=== PATIENT | male | born 1985 | race American Indian/Alaskan Native ===

== ENCOUNTER 2016-08-23 15:39 | Emergency (ER) | payer OTHER ==
[2016-08-23 16:17] LABS: Basophils % (Auto) 0.3 % (0.0-1.8); Eosinophils % (Auto) 0.3 % (0.0-4.3); Hematocrit 43.7 % (35.5-45.6); Hemoglobin 14.5 gm/dl (11.8-15.2); Mean Corpuscular HGB Conc 33 % (32-34); Mean Corpuscular Hemoglobin 28 pg (28-32); Mean Corpuscular Volume 84 fl (84-94); Platelet Count 331 K/mm3 (140-440); Red Cell Distribution Width 13.3 % (13.2-15.2); White Blood Count 10.3 K/mm3 (4.5-11.0)
[2016-08-23 16:26] LABS: Alanine Aminotransferase 28 units/L (7-56); Albumin 4.3 g/dL (3.9-5); Albumin/Globulin Ratio 1.2 %; Alkaline Phosphatase 72 units/L (35-129); Anion Gap 20 mmol/L; BUN/Creatinine Ratio 16.25; Blood Urea Nitrogen 13 mg/dL (9-20); Calcium 9.3 mg/dL (8.4-10.2); Carbon Dioxide 23 mmol/L (22-30); Chloride 100.6 mmol/L (98-107); Glucose 108 mg/dL (75-100); Lipase 20 units/L (13-60); Potassium 4.3 mmol/L (3.6-5.0); Sodium 139 mmol/L (137-145)
[2016-08-23 16:35] LABS: Bilirubin,Urine NEG (Negative); Blood,Urine NEG (Negative); Ketones,Urine NEG (Negative); Leukocyte Esterase,Urine NEG (Negative); Mucus,Urine 2+ /HPF; Nitrite,Urine NEG (Negative); Urobilinogen,Urine < 2.0 mg/dL (<2.0)
[2016-08-23] MEDS ORDERED: NACL ONE (17:21)
--- NOTE | 2016-08-23 18:20 | Cat Scan Report ---
FINAL REPORT PROCEDURE: CT abdomen and pelvis with contrast. TECHNIQUE: Computerized axial tomography of the abdomen and pelvis was performed after the IV injection of iodinated nonionic contrast. HISTORY: Abdominal pain. COMPARISON: No prior studies are available for comparison. FINDINGS: The lung bases are clear. There are no pleural effusions. The heart size is normal. The liver, spleen and pancreas appear normal. The gallbladder is present. The adrenal glands are not enlarged. Both kidneys appear normal in size and configuration. The abdominal aorta has a normal caliber. There is no retroperitoneal adenopathy. The unopacified gastrointestinal tract is unremarkable. A normal appendix is visible. The bladder, seminal vesicles and prostate appear normal. The regional skeleton appears intact. IMPRESSION: Normal studies of the abdomen and pelvis.
--- NOTE | 2016-08-23 19:11 | Emergency Department Report ---
ED Abdominal Pain HPI - General Chief Complaint: Abdominal Pain Stated Complaint: VOMITING/BODY SPASMS Time Seen by Provider: 08/23/16 17:55 Source: patient Mode of arrival: Ambulatory Limitations: No Limitations - History of Present Illness Initial Comments: Patient had a reported that he ate some chicken wings yesterday and haven't felt right since then. He is complaining nausea vomiting since this morning and diarrhea. He is complaining of abdominal pain generalized cramping in that is 3 out of 10. Denies Any fever or chills. He said he vomited twice today and had diarrhea stool twice this morning. His BP 157/107 and he is asymptomatic and does not have a history of high blood pressure. Denies any blood in stool or recent travel outside the country. She reports taking Pepto- Bismol without any relief. Denies any back pain. MD Complaint: abdominal pain, other (Nauses , vomiting and diarrhea) -: This morning Location: diffuse Radiation: none Migration to: no migration Severity: mild Severity scale (0 -10): 3 Quality: cramping Consistency: intermittent Improves With: nothing Worsens With: nothing Context: possible food poisoning Associated Symptoms: nausea, vomiting, diarrhea. denies: fever, chills, constipation, dysuria, hematemesis, hematochezia, melena, hematuria, anorexia, syncope Treatments Prior to Arrival: antacids - Related Data Previous Rx's Medication Instructions Recorded Last Taken Type Dicyclomine [Bentyl] 20 mg PO TID #12 tablet 08/23/16 Unknown Rx Promethazine [Phenergan TAB] 25 mg PO Q8HR PRN #12 tab 08/23/16 Unknown Rx Allergies Allergy/AdvReac Type Severity Reaction Status Date / Time No Known Allergies Allergy Verified 08/23/16 15:44 ED Review of Systems ROS: Stated complaint: VOMITING/BODY SPASMS Other details as noted in HPI Comment: All other systems reviewed and negative Constitutional: denies: chills, fever ENT: denies: throat pain Respiratory: no symptoms reported Cardiovascular: denies: chest pain, palpitations, edema, syncope Gastrointestinal: abdominal pain, nausea, vomiting, diarrhea. denies: constipation, hematemesis, melena, hematochezia Musculoskeletal: denies: back pain, joint swelling, arthralgia, myalgia Skin: denies: rash Neurological: denies: headache, weakness, numbness, paresthesias, confusion, abnormal gait, vertigo ED Past Medical Hx - Past Medical History Previous Medical History?: Yes Additional medical history: morbid obesity - Surgical History Past Surgical History?: No - Family History Family history: hypertension - Social History Smoking Status: Never Smoker Substance Use Type: Alcohol - Medications Home Medications: Home Medications Medication Instructions Recorded Confirmed Last Taken Type Dicyclomine [Bentyl] 20 mg PO TID #12 tablet 08/23/16 Unknown Rx Promethazine [Phenergan TAB] 25 mg PO Q8HR PRN #12 tab 08/23/16 Unknown Rx ED Physical Exam - General Limitations: No Limitations General appearance: alert, in no apparent distress - Head Head exam: Present: atraumatic, normocephalic, normal inspection - Eye Eye exam: Present: normal appearance, PERRL, EOMI. Absent: scleral icterus, conjunctival injection, periorbital swelling, periorbital tenderness Pupils: Present: normal accommodation - ENT ENT exam: Present: normal exam, normal orophraynx, mucous membranes moist, TM's normal bilaterally, normal external ear exam - Neck Neck exam: Present: normal inspection, full ROM. Absent: tenderness, meningismus, lymphadenopathy - Respiratory Respiratory exam: Present: normal lung sounds bilaterally. Absent: respiratory distress, chest wall tenderness - Cardiovascular Cardiovascular Exam: Present: regular rate, normal rhythm, normal heart sounds - GI/Abdominal GI/Abdominal exam: Present: soft, normal bowel sounds. Absent: distended, tenderness, guarding, rebound, rigid, organomegaly, mass, bruit, hernia - Extremities Exam Extremities exam: Present: normal inspection, full ROM, normal capillary refill. Absent: tenderness, pedal edema, joint swelling, calf tenderness - Back Exam Back exam: Present: normal inspection, full ROM. Absent: tenderness, CVA tenderness (R), CVA tenderness (L), muscle spasm, paraspinal tenderness, vertebral tenderness, rash noted - Neurological Exam Neurological exam: Present: alert, oriented X3, normal gait, reflexes normal. Absent: motor sensory deficit - Psychiatric Psychiatric exam: Present: normal affect, normal mood - Skin Skin exam: Present: warm, dry, intact, normal color. Absent: rash ED Course Vital Signs 08/23/16 08/23/16 08/23/16 15:44 19:19 19:23 Temperature 98.5 F 99.6 F Pulse Rate 90 91 H Respiratory 18 18 18 Rate Blood Pressure 157/107 Blood Pressure 148/97 [Left] O2 Sat by Pulse 98 100 100 Oximetry 08/23/16 19:31 Temperature Pulse Rate Respiratory Rate Blood Pressure Blood Pressure 150/92 [Left] O2 Sat by Pulse Oximetry - Reevaluation(s) Reevaluation #1: 08/23/16 19:34 Given Zofran 4 mg ODT in emergency room for nausea and orally challenged and tolerated liquid well. ED Medical Decision Making - Lab Data Result diagrams: 08/23/16 15:51 08/23/16 15:51 Lab Results 08/23/16 08/23/16 08/23/16 Range/Units 15:51 15:51 16:02 WBC 10.3 (4.5-11.0) K/mm3 RBC 5.20 H (3.65-5.03) M/mm3 Hgb 14.5 (11.8-15.2) gm/dl Hct 43.7 (35.5-45.6) % MCV 84 (84-94) fl MCH 28 (28-32) pg MCHC 33 (32-34) % RDW 13.3 (13.2-15.2) % Plt Count 331 (140-440) K/mm3 Lymph % (Auto) 10.2 L (13.4-35.0) % [place] % (Auto) 6.9 (0.0-7.3) % Eos % (Auto) 0.3 (0.0-4.3) % Baso % (Auto) 0.3 (0.0-1.8) % Lymph # 1.1 L (1.2-5.4) K/mm3 [place] # 0.7 (0.0-0.8) K/mm3 Eos # 0.0 (0.0-0.4) K/mm3 Baso # 0.0 (0.0-0.1) K/mm3 Seg Neutrophils % 82.3 H (40.0-70.0) % Seg Neutrophils # 8.4 H (1.8-7.7) K/mm3 Sodium 139 (137-145) mmol/L Potassium 4.3 (3.6-5.0) mmol/L Chloride 100.6 (98-107) mmol/L Carbon Dioxide 23 (22-30) mmol/L Anion Gap 20 mmol/L BUN 13 (9-20) mg/dL Creatinine 0.8 (0.8-1.5) mg/dL Estimated GFR > 60 ml/min BUN/Creatinine Ratio 16.25 % Glucose 108 H (75-100) mg/dL Calcium 9.3 (8.4-10.2) mg/dL Total Bilirubin 0.50 (0.1-1.2) mg/dL AST 19 (5-40) units/L ALT 28 (7-56) units/L Alkaline Phosphatase 72 (35-129) units/L Total Protein 8.0 (6.3-8.2) g/dL Albumin 4.3 (3.9-5) g/dL Albumin/Globulin Ratio 1.2 % Lipase 20 (13-60) units/L Urine Color Yellow (Yellow) Urine Turbidity Clear (Clear) Urine pH 5.0 (5.0-7.0) Ur Specific Pearl 1.024 (1.003-1.030) Urine Protein 30 mg/dl (Negative) mg/dL Urine Glucose (UA) Neg (Negative) mg/dL Urine Ketones Neg (Negative) mg/dL Urine Blood Neg (Negative) Urine Nitrite Neg (Negative) Urine Bilirubin Neg (Negative) Urine Urobilinogen < 2.0 (<2.0) mg/dL Ur Leukocyte Esterase Neg (Negative) Urine WBC (Auto) 4.0 (0.0-6.0) /HPF Urine RBC (Auto) 4.0 (0.0-6.0) /HPF Urine Mucus 2+ /HPF - Radiology Data Radiology results: report reviewed The scan of the abdomen and pelvis are reveals normal study of the abdomen and pelvis. There are no pleural effusion and lung bases are clear. The heart size is normal. The liver, spleen and pancreas appears normal. The gallbladder is present. The adrenal glands are not enlarged. Both kidneys appear normal in size and configuration. The abdominal aorta has a normal caliber. There is no retro-peritoneal adenopathy. On open gastrointestinal tract is unremarkable. A normal appendix is visible. The bladder, seminal vesicles and prostate appears normal. The regional skeleton appears intact. - Medical Decision Making ED Course: In here complaining of abdominal pain generalized that started this morning and he thinks that the cause of pain was from eating chicken wings yesterday. He was given Zofran 4 mg ODT and emergency room to manage nausea and orally challenged the emergency room and tolerated well. Had no episode of vomiting or diarrhea in the emergency room. I explained to patient his lab results and CT scan results and he voiced understanding. CBC showed slight shift to the left with no elevation in white count. CMP and lipase is normal. Urinalysis normal. I explained to patient that he has abdominal pain nausea vomiting and diarrhea from food source. Because of him that he needs to eat a bland diet for 3 days to include banana, rice, applesauce and toast. I also explained to him I will give him prescription for Bentyl which will calm stomach and Phenergan for nausea. Patient is stable and discharged home in stable condition with prescription for Bentyl and Phenergan. Critical care attestation.: If time is entered above; I have spent that time in minutes in the direct care of this critically ill patient, excluding procedure time. ED Disposition Clinical Impression: Nausea vomiting and diarrhea, Elevated blood-pressure reading without diagnosis of hypertension Abdominal pain Qualifiers: Abdominal location: generalized Qualified Code(s): R10.84 - Generalized abdominal pain Disposition: DISCHARGED TO HOME OR SELFCARE Is pt being admited?: No Does the pt Need Aspirin: No Condition: Stable Instructions: Abdominal Pain (ED), Acute Nausea and Vomiting (ED), Gastroenteritis (ED), Acute Diarrhea (ED), Nutrition Tips for Relief of Diarrhea (ED), Hypertension (ED) Additional Instructions: Please wait spicy food and carbonated beverage for the next 3 days. Eat banana, rice, applesauce and toast for the next 72 hours. If you're abdominal pain, nausea vomiting and diarrhea worsens please return to emergency room [facility] otherwise follow-up with a primary care doctor and if you do not have one you can follow up with outside Medical Center. Your blood pressure was elevated emergency room today although it got better it still considered to be elevated so, follow up your primary care physician or Center outside Medical Center and in the meantime keep a daily log of your blood pressure to take to your appointment. increase her fluid intake to include Gatorade and water at least 2-3 L of fluid per day. Phenergan K cause drowsiness so please do not operate or drive heavy machinery while taking this medication Prescriptions: Dicyclomine [Bentyl] 20 mg PO TID #12 tablet Promethazine [Phenergan TAB] 25 mg PO Q8HR PRN #12 tab PRN Reason: Nausea Referrals: PRIMARY CARE, [Primary Care Provider] - 08/24/16 [facility] [Outside] - 08/24/16 [facility] [Provider Group] - 08/27/16 Forms: Work/School Release Form(ED)
[2016-08-23] MEDS ORDERED: ZOFRAN ODT PO ONE (19:30)
[2016-08-23] MEDS ORDERED: ZOFRAN ODT ONE (19:31)
[2016-08-23 19:37] VITALS: BP 148/97
== END 2016-08-23 20:03 | disposition home or self-care (01) ==
LOC: ED 15:39
DX: R10.84 Generalized abdominal pain (principal); R11.2 Nausea with vomiting, unspecified; R19.7 Diarrhea, unspecified; R03.0 Elevated blood-pressure reading, without diagnosis of hypertension; E66.01 Morbid (severe) obesity due to excess calories
CPT/HCPCS: 36415; 74177; 80053; 81001; 83690; 85025; 99284; Q9967; Q0162

== ENCOUNTER 2018-04-20 20:35 | Emergency (ER) | payer OTHER ==
[2018-04-20] MEDS ORDERED: NACL 0.9% 1000 ML 1,000 ML IV ONE (21:14)
[2018-04-20] MEDS ORDERED: TYLENOL PO ONE (21:15)
[2018-04-20 21:38] LABS: Hematocrit 42.6 % (35.5-45.6); Mean Corpuscular HGB Conc 33 % (32-34); Mean Corpuscular Volume 86 fl (84-94); Platelet Count 312 K/mm3 (140-440); Red Blood Count 4.96 M/mm3 (3.65-5.03); Red Cell Distribution Width 13.1 % (13.2-15.2)
[2018-04-20 21:52] LABS: Bilirubin,Urine NEG (Negative); Blood,Urine NEG (Negative); Color,Urine Yellow (Yellow); Mucus,Urine FEW /HPF; Protein,Urine <15 mg/dL mg/dL (Negative)
[2018-04-20 22:02] LABS: Alanine Aminotransferase 20 units/L (7-56); Albumin 4.1 g/dL (3.9-5); BUN/Creatinine Ratio 10; Blood Urea Nitrogen 10 mg/dL (9-20); Hemolysis Index 7
[2018-04-20 22:27] LABS: Band Neutrophils # (Manual) 0.1 K/mm3; Basophils % (Manual) 0 % (0.0-1.8); Total Cells Counted 100
[2018-04-20 22:28] LABS: Giant Platelets Few; RBC Morphology Normal
--- NOTE | 2018-04-20 22:52 | XRay Report ---
FINAL REPORT EXAM: XR CHEST ROUTINE 2V HISTORY: cough TECHNIQUE: 2 views of the chest. PRIORS: None. FINDINGS: The cardiomediastinal silhouette appears normal. The lungs are clear. The bones and soft tissues are unremarkable. IMPRESSION: No evidence of acute cardiopulmonary disease
--- NOTE | 2018-04-21 00:42 | Emergency Department Report ---
ED Abdominal Pain HPI - General Chief Complaint: Abdominal Pain Stated Complaint: LOWER ABD PAIN HEADACHE Time Seen by Provider: 04/21/18 00:28 Source: patient Mode of arrival: Ambulatory Limitations: No Limitations - History of Present Illness Severity scale (0 -10): 10 - Related Data Previous Rx's Medication Instructions Recorded Last Taken Type Dicyclomine [Bentyl] 20 mg PO TID #12 tablet 08/23/16 Unknown Rx Promethazine [Phenergan TAB] 25 mg PO Q8HR PRN #12 tab 08/23/16 Unknown Rx Allergies Allergy/AdvReac Type Severity Reaction Status Date / Time No Known Allergies Allergy Verified 08/23/16 15:44 ED Review of Systems ROS: Stated complaint: LOWER ABD PAIN HEADACHE Other details as noted in HPI ED Past Medical Hx - Past Medical History Previous Medical History?: Yes Hx Hypertension: Yes Additional medical history: morbid obesity - Surgical History Additional Surgical History: Back Surgery - Social History Smoking Status: Never Smoker Substance Use Type: None - Medications Home Medications: Home Medications Medication Instructions Recorded Confirmed Last Taken Type Dicyclomine [Bentyl] 20 mg PO TID #12 tablet 08/23/16 Unknown Rx Promethazine [Phenergan TAB] 25 mg PO Q8HR PRN #12 tab 08/23/16 Unknown Rx ED Physical Exam - General Limitations: No Limitations ED Course Vital Signs 04/20/18 21:09 Temperature 101.3 F H Pulse Rate 100 H Respiratory 18 Rate Blood Pressure 143/82 O2 Sat by Pulse 98 Oximetry ED Medical Decision Making - Lab Data Result diagrams: 04/20/18 21:19 04/20/18 21:19 Critical care attestation.: If time is entered above; I have spent that time in minutes in the direct care of this critically ill patient, excluding procedure time. ED Disposition Condition: Stable
--- NOTE | 2018-04-21 02:06 | Cat Scan Report ---
FINAL REPORT EXAM: CT ABDOMEN PELVIS WO CON HISTORY: bilateral lower abdominal pain worse to suprapubic reg TECHNIQUE: Helical CT scan through the abdomen and pelvis without contrast. Images are reconstructed in the sagittal and coronal planes. PRIORS: 08/23/2016 FINDINGS: Solid organ and bowel evaluation is limited without intravenous contrast. Bowel evaluation is limited without oral contrast. Images through the lung bases show a small reticulonodular infiltrate in the posterior right middle l obe and in the inferior right lower lobe. There is diffuse low-attenuation of the liver consistent with fatty infiltration. Otherwise, the live r appears normal. The gallbladder, pancreas, spleen and adrenal glands appear normal. The kidneys appear grossly normal. The pelvic organs appear grossly normal. The stomach appears grossly within normal limits. There is fairly extensive inflammatory fat graying in the left lower quadrant coursing along the infe rior and posterior proximal sigmoid colon. There is no associated diverticulosis. There are no abnorm ally dilated loops of bowel. A normal-appearing appendix is identified. The abdominal aorta has a normal diameter. The bones and subcutaneous soft tissues are unremarkable for age. IMPRESSION: 1. Pericolonic inflammatory fat change around the proximal sigmoid colon most likely represents epipl oic appendagitis 2. Reticular nodular infiltrate in the posterior right middle lobe and inferior right lower lobe susp icious for mild pneumonia 3. Diffuse fatty infiltration of the liver
[2018-04-21] MEDS ORDERED: LEVAQUIN PO ONE (03:55)
[2018-04-21 04:44] VITALS: BP 156/92
== END 2018-04-21 04:58 | disposition home or self-care (01) ==
LOC: ED 20:35
DX: R10.30 Lower abdominal pain, unspecified (principal); R51 Headache; I10 Essential (primary) hypertension; E66.01 Morbid (severe) obesity due to excess calories; Z68.41 Body mass index [BMI] 40.0-44.9, adult
CPT/HCPCS: 36415; 71046; 74176; 80053; 81001; 85007; 85025; 99283

== ENCOUNTER 2018-11-30 22:48 | Emergency (ER) | payer OTHER ==
[2018-12-01] MEDS ORDERED: IBUPROFEN PO ONE (02:45)
--- NOTE | 2018-12-01 02:46 | Emergency Department Report ---
ED General Adult HPI - General Chief complaint: Extremity Injury, Lower Stated complaint: RIGHT LEG PAIN Time Seen by Provider: 12/01/18 01:53 Source: patient, family Mode of arrival: Ambulatory Limitations: No Limitations - History of Present Illness Initial comments: This is a 33-year-old male patient here complaining that he pulled a muscle at his rib cages been having pain at 9 out of 10. Pain is located on the right side. Patient reports that he was reaching for something when this happened. He reports the pain is radiating down his right leg. Patient does have a history of chronic pain per patient he reports that he feels like he is going to bust. Denies any swelling to extremities. Denies any chest pain or shortness of breath. He reports that it hurts to weight-bear. Reports lower back pain that is chronic. He has a history of herniated disc in his lower back and he has a history of back surgery with chronic back pain. He states that he took some [id number] pain medication but it did not help. MD Complaint: pulled muscle with right leg pain Onset/Timin -: days(s) Location: right (rib cage) Radiation: extremity (right lower extremity) Severity scale (0 -10): 9 Quality: stabbing, aching Consistency: constant Improves with: none Worsens with: movement Associated Symptoms: denies: confusion, chest pain, cough, diaphoresis, fever/chills, headaches, loss of appetite, malaise, nausea/vomiting, rash, seizure, shortness of breath, syncope, weakness Treatments Prior to Arrival: other (auhg-qqw-boyzgks pain medication) - Related Data Previous Rx's Medication Instructions Recorded Last Taken Type Dicyclomine [Bentyl] 20 mg PO TID #12 tablet 08/23/16 Unknown Rx Promethazine [Phenergan TAB] 25 mg PO Q8HR PRN #12 tab 08/23/16 Unknown Rx ALBUTEROL Inhaler(NF) [VENTOLIN 1 puff IH TID #1 inha 04/21/18 Unknown Rx Inhaler(NF)] Ketorolac [Toradol] 10 mg PO Q6H PRN #14 tablet 04/21/18 Unknown Rx levoFLOXacin [Levaquin] 750 mg PO QDAY #5 tablet 04/21/18 Unknown Rx Allergies Allergy/AdvReac Type Severity Reaction Status Date / Time No Known Allergies Allergy Verified 08/23/16 15:44 ED Review of Systems ROS: Stated complaint: RIGHT LEG PAIN Other details as noted in HPI Constitutional: denies: chills, fever ENT: denies: throat pain, congestion Respiratory: denies: cough, shortness of breath, SOB with exertion, SOB at rest, stridor, wheezing Cardiovascular: denies: chest pain, palpitations, dyspnea on exertion, edema, syncope, paroxysmal nocturnal dyspnea Gastrointestinal: denies: abdominal pain, nausea, vomiting Genitourinary: denies: dysuria, hematuria Musculoskeletal: back pain (pain to right rib cage posteriorly), arthralgia (right leg). denies: joint swelling, myalgia Skin: denies: rash Neurological: denies: headache, weakness, numbness, paresthesias, confusion, abnormal gait, vertigo ED Past Medical Hx - Past Medical History Previous Medical History?: Yes Hx Hypertension: Yes Additional medical history: morbid obesity. herniated disc. Chronic back pain - Surgical History Past Surgical History?: Yes Additional Surgical History: Back Surgery - Family History Family history: hypertension - Social History Smoking Status: Never Smoker Substance Use Type: None - Medications Home Medications: Home Medications Medication Instructions Recorded Confirmed Last Taken Type Dicyclomine [Bentyl] 20 mg PO TID #12 tablet 08/23/16 Unknown Rx Promethazine [Phenergan TAB] 25 mg PO Q8HR PRN #12 tab 08/23/16 Unknown Rx ALBUTEROL Inhaler(NF) [VENTOLIN 1 puff IH TID #1 inha 04/21/18 Unknown Rx Inhaler(NF)] Ketorolac [Toradol] 10 mg PO Q6H PRN #14 tablet 04/21/18 Unknown Rx levoFLOXacin [Levaquin] 750 mg PO QDAY #5 tablet 04/21/18 Unknown Rx ED Physical Exam - General Limitations: No Limitations General appearance: alert, in no apparent distress - Head Head exam: Present: atraumatic, normocephalic - Eye Eye exam: Present: normal appearance, PERRL, EOMI Pupils: Present: normal accommodation - ENT ENT exam: Present: normal exam, normal orophraynx, mucous membranes moist - Neck Neck exam: Present: normal inspection, full ROM, other (no C-spine tenderness). Absent: tenderness, lymphadenopathy - Respiratory Respiratory exam: Present: normal lung sounds bilaterally. Absent: respiratory distress, chest wall tenderness, accessory muscle use - Cardiovascular Cardiovascular Exam: Present: regular rate, normal rhythm, normal heart sounds - GI/Abdominal GI/Abdominal exam: Present: soft, rigid, normal bowel sounds. Absent: distended, tenderness, guarding, rebound - Extremities Exam Extremities exam: Present: normal inspection, full ROM, normal capillary refill, other (No cce. + 2 pulses in all extremities, no neurovascular compromise). Absent: tenderness, pedal edema, joint swelling, calf tenderness - Expanded Lower Extremity Exam Right Hip exam: Present: normal inspection, full ROM. Absent: tenderness, swelling, abrasion Upper Leg exam: Present: normal inspection, full ROM. Absent: tenderness, swelling Knee exam: Present: normal inspection, full ROM. Absent: tenderness, swelling, abrasion, ecchymosis Lower Leg exam: Present: normal inspection, full ROM. Absent: tenderness, swelling, abrasion, laceration, ecchymosis, deformity, crepidus, dislocation, erythema, palpable cord, Jennifer's sign Ankle exam: Present: normal inspection, full ROM. Absent: tenderness, swelling, abrasion, laceration, ecchymosis, deformity, crepidus, dislocation, erythema Foot/Toe exam: Present: normal inspection, full ROM. Absent: tenderness, swelling, abrasion, laceration, ecchymosis, deformity, crepidus, dislocation, erythema, amputation, puncture wound, foreign body, calcaneal tenderness, tenderness at base of 5th metatarsal, nail avulsion, subungual hematoma Neuro vascular tendon exam: Present: no vascular compromise Gait: Positive: observed and normal - Back Exam Back exam: Present: normal inspection, full ROM, other (ambulates without any difficulties). Absent: tenderness, CVA tenderness (R), CVA tenderness (L), muscle spasm, paraspinal tenderness, vertebral tenderness, rash noted - Expanded Back Exam Expanded Back exam: Absent: saddle anesthesia Back exam: Negative Straight Leg Raising: Left, Right - Neurological Exam Neurological exam: Present: alert, oriented X3, normal gait - Psychiatric Psychiatric exam: Present: normal affect, normal mood - Skin Skin exam: Present: warm, dry, intact, normal color. Absent: rash ED Course Vital Signs 11/30/18 23:21 Temperature 98.3 F Pulse Rate 89 Respiratory 18 Rate Blood Pressure 143/81 [Right] O2 Sat by Pulse 98 Oximetry - Reevaluation(s) Reevaluation #1: 12/01/18 05:19 Patient given Motrin 800 mg in the emergency room which took his pain down to 6/10 and patient wanted something stronger for pain. I discussed the patient that his x-ray is normal and does not show any rib fracture. Patient was not pleased that he could not get anything stronger for pain. I discussed the patient's that he will need to follow up with primary care for management of his chronic pain. ED Medical Decision Making - Lab Data Lab Results 12/01/18 Range/Units 03:02 D-Dimer < 135.0 (0-234) ng/mlDDU - Radiology Data Radiology results: report reviewed Patient had x-ray chest with rib for review those dictated by radiologist and report reviewed by myself. Please see details below Findings [facility] [address] [place] [address] XRay Report Signed Patient: THAO CHONG MR#: [id number] : 1985 Acct:[id number] Age/Sex: 33 / M ADM Date: 11/30/18 Loc: ED Attending Dr: Ordering Physician: SPENCER SANTANA Date of Service: 12/01/18 Procedure(s): XR ribs UNI w PA Chest 3+V RT Accession Number(s): [id number] cc: SPENCER SANTANA Fluoro Time In Minutes: CHEST WITH RIGHT RIBS 4 VIEWS 0257 INDICATION: rib pain from injury COMPARISON: Chest x-ray 04/20/2018 FINDINGS: Lung che appear clear. No pneumothorax is noted. No rib fractures are noted. Signer Name: Sly Small MD Signed: 12/01/2018 3:07 AM Workstation Name: [id number] Transcribed By: GJ Dictated By: Sly Small MD Electronically Authenticated By: Sly Small MD Signed Date/Time: 12/01/18 0307 DD/DT: - Medical Decision Making This is a 33-year-old male presents to emergency room complaining of right-sided rib pain and believes that he injured his rib by trying to reach an extended to [place] and pulled a muscle. He is also having right leg pain and has a history of chronic back pain with herniated disks. Patient was given Motrin in the emergency room which took his pain down to 6/10 from 12/02. He is requesting something stronger for pain and I told him because he does not have a broken bones or any traumatic injury or cannot give him anything stronger than Motrin and he refused Motrin prescription and also refused discharge instruction paperwork. I verbally discussed with patient his diagnosis, treatment plan, d- dimer results. Patient is stable and in no acute distress. He left the emergency room without his paperwork after I discussed with him on his diagnosis and need to follow up with orthopedic and primary care. I informed patient that he can return to the emergency room if his condition worsens and if he decides that he wants his paperwork for referrals then he Moshe come to medical records and his ID to obtain discharge ejection paperwork. - Differential Diagnosis rib fracture, contusion, strain Critical care attestation.: If time is entered above; I have spent that time in minutes in the direct care of this critically ill patient, excluding procedure time. ED Disposition Clinical Impression: Muscle strain, Rib pain on right side Chronic low back pain Qualifiers: Back pain laterality: midline Sciatica presence: with sciatica Sciatica laterality: sciatica of right side Qualified Code(s): M54.41 - Lumbago with sciatica, right side; G89.29 - Other chronic pain Disposition: DC-01 TO HOME OR SELFCARE Is pt being admited?: No Does the pt Need Aspirin: No Condition: Stable Instructions: Muscle Strain (ED), Musculoskeletal Pain (ED), Chronic Back Pain (ED), Arthralgia (ED) Additional Instructions: Please follow up with your primary care doctor if you do not have a primary care doctor follow-up with outside Medical Center and he can be referred to pain specialist to manage her chronic pain. Patient did not want prescription for Motrin. He wanted something stronger and I told him that I could not give him anything today does not have any broken bones or traumatic injury and will need to follow-up with primary care to be referred to pain specialist to manage chronic back pain. Please return to emergency room if your condition worsens. Referrals: BRIANA BUENO MD [Primary Care Provider] - 12/02/18 [facility] [Outside] - 2-3 Days [facility] [Provider Group] - 2-3 Days VIJAY ALVAREZ MD [Staff Physician] - 2-3 Days Forms: Work/School Release Form(ED)
--- NOTE | 2018-12-01 03:11 | XRay Report ---
CHEST WITH RIGHT RIBS 4 VIEWS 0257 INDICATION: rib pain from injury COMPARISON: Chest x-ray 04/20/2018 FINDINGS: Lung che appear clear. No pneumothorax is noted. No rib fractures are noted. Signer Name: Sly Small MD Signed: 12/01/2018 3:07 AM Workstation Name: [id number]
[2018-12-01 06:40] VITALS: BP 124/86
== END 2018-12-01 06:00 | disposition home or self-care (01) ==
LOC: ED 22:48
DX: S86.911A Strain of unspecified muscle(s) and tendon(s) at lower leg level, right leg, initial encounter (principal); G89.29 Other chronic pain; M54.5 Low back pain; R07.81 Pleurodynia; I10 Essential (primary) hypertension; E66.01 Morbid (severe) obesity due to excess calories; Z98.890 Other specified postprocedural states; Z79.899 Other long term (current) drug therapy; X58.XXXA Exposure to other specified factors, initial encounter; Y93.89 Activity, other specified; Y92.89 Other specified places as the place of occurrence of the external cause; Y99.8 Other external cause status
CPT/HCPCS: 36415; 85379; 99283